=== PATIENT | female | born 1980 | race Hispanic/Latino ===

== ENCOUNTER 2019-10-25 01:11 | Inpatient (IN) | payer SELFPAY ==
--- OUTSIDE RECORDS SUMMARY | 2019-10-25 01:14 | XMS REPORT ---
:1980 [facility] Address [address] [place] [address] Care Team Providers Name Role Phone Unavailable Unavailable Unavailable Problems This patient has no known problems. Allergies, Adverse Reactions, Alerts This patient has no known allergies or adverse reactions. Medications This patient has no known medications.
[2019-10-25] MEDS ORDERED: BUTORPHANOL 1 MG/ML INJ ONE (03:09)
[2019-10-25] MEDS ORDERED: OXYTOCIN/LR 20 UNIT/1,000 ML BAG IV ONE (03:28)
[2019-10-25] MEDS ORDERED: LIDOCAINE 1% MPF 30 ML VIAL ONE (03:28)
[2019-10-25] MEDS ORDERED: METHYLERGONOVINE 0.2MG/ML AMP IM ONE (03:28)
[2019-10-25] MEDS ORDERED: METHYLERGONOVINE 0.2MG/ML AMP IM PRN ×2 (03:34→04:35)
[2019-10-25] MEDS ORDERED: CARBOPROST TROME 250 MCG/ML IM PRN ×2 (03:34→04:35)
[2019-10-25] MEDS ORDERED: PROMETHAZINE 25 MG/ML VIAL IV PRN (03:34)
[2019-10-25] MEDS ORDERED: Ringers Lactate 1,000 ML IV PRN (03:34)
[2019-10-25] MEDS ORDERED: BUTORPHANOL 1 MG/ML INJ IV ONE (03:37)
[2019-10-25 03:39] LABS: Absolute Lymphocytes (CBC) 2.7 K/uL (0.7-4.9); Basophils % 0.3 % (0-1.3); Hematocrit 28.2 % (36.0-45.0); MPV 9.4 fL (7.6-11.3); RBC Red Blood Cell Count 3.82 M/uL (3.86-4.86)
[2019-10-25] MEDS ORDERED: Ringers Lactate 1,000 ML IV SCH (04:00)
[2019-10-25] MEDS ORDERED: IBUPROFEN 200 MG TAB PO PRN (04:35)
[2019-10-25] MEDS ORDERED: METHYLERGONOVINE 0.2 MG TAB PO PRN (04:35)
[2019-10-25] MEDS ORDERED: ACETAMINOPHEN 500 MG TAB PO PRN (04:35)
[2019-10-25] MEDS ORDERED: ONDANSETRON 4 MG (ODT) TAB PO PRN (04:35)
--- NOTE | 2019-10-25 04:38 | P.BOP ---
Preoperative diagnosis: 40+wk , SROM, labor Postoperative diagnosis: same, delivery viable female Primary procedure: SCVD female Estimated blood loss: 150ml Findings: 7-8 oz female Complications: None Transferred to: Other (272) Condition: Good
[2019-10-25] MEDS ORDERED: OXYTOCIN/LR 20 UNITS/1,000 ML BAG IV SCH (05:00)
--- NOTE | 2019-10-25 09:48 | HP ---
Date of Admission: 10/25/2019 History Of Present Illness: Ms. Trejo is a 39-year-old female, 6, para 4- 0-1-4, now at approximately 40+ weeks' gestation. She was seen through [facility] for 1 visit. Had ultrasound that confirmed EDC of approximately 10/21. She otherwise has not received care because of lack of insurance. She presented yesterday with contractions, but cervix was closed. She comes in today with stronger contractions and had spontaneous rupture of membranes here with meconiu m-stained amniotic fluid apparent. She was noted to go from 1 cm to 3 cm during the observation. Past Medical History: 4 prior vaginal deliveries, 1 prior spontaneous AB at 14 weeks' gestation. Alexandria arias has no other significant hospitalizations, accidents, illnesses, injuries, or surgeries. Medications: She is on no medications on a regular basis other than vitamin. Social History: She does not smoke. Family History: Noncontributory. Review of Systems: She reports no recent cough, cold, fever, or chills. No recent nausea or vomiting. No breast knots or lumps. No bowel or bladder issues or urine difficulty. Infant has been active. Physical Examination: General: Reveals female, in moderate discomfort. Neck: Supple without adenopathy or thyromegaly. Lungs: Clear. Cardiac: Regular rate and rhythm without murmurs. Breasts: Not examined. Abdomen: Estimated weight of 8 pounds. Pelvic: Cervix now is approximately 6 to 7 cm, vertex presentation at -1 station with cervix 80% eff aced. Extremities: No cyanosis, clubbing, or edema. Impression: 40+ weeks' , limited to no care, active rapidly advancing labor. Plan: heart rate is relatively nonreactive. We will limit IV medications with her rapid progr ess. Doubt epidural will be available. JAZZ/VANDANAL Voice ID: [id number]
[2019-10-25] MEDS ORDERED: IBUPROFEN 600 MG TAB PO PRN (13:00)
[2019-10-25 19:26] VITALS: BMI 36.0
--- NOTE | 2019-10-25 20:54 | DN ---
Surgeon: Hemal Staley MD History: Ms. Trejo is a 39-year-old female, 6, para 4-0-1-4 at 40+ weeks gestatio n admitted with spontaneous rupture of membranes in an active labor. She had a first stage of labor of approximately 1 hour and 55 minutes, second stage of labor of 9 minutes. She delivered by spontan eous controlled vaginal delivery at 7 pounds 8 ounces female infant, 9 and 9, after having rece ived 1 mg of Stadol for analgesia during her labor course. Infant was delivered vertex OA. The cord was clamped, cut, and the placed on mother's upper abdomen. Cord blood was obtained. The pl acenta was spontaneously expelled and appeared to be intact. Intrauterine examination revealed no re tained placental fragments. She suffered no lacerations. Quantitative blood loss was 165 mL. JAZZ/YUN Voice ID: [id number] Report ID: [id number]
[2019-10-26 02:48] LABS: RPR (Rapid Plasma Reagin) NON-REACT (NON-REACT)
[2019-10-26] MEDS ORDERED: hydrOXYzine HCL 25 MG TAB PO ONE (05:10)
[2019-10-26 05:43] VITALS: BP 126/77
[2019-10-26 07:05] VITALS: TEMP 97.8
[2019-10-26] MEDS ORDERED: INFLUENZA VACCINE (for 3y+) 0.5 ML DOSE IMVAC ONE (07:32)
[2019-10-26] MEDS ORDERED: Tdap (Diph,Pertuss(Acell),Tet Vac) 0.5 ML SYR IMVAC ONE (07:32)
[2019-10-29 03:37] LABS: HBsAG Nonreactive (Nonreactive)
== END 2019-10-26 09:00 | disposition home or self-care (01) | DRG 807 ==
LOC: L&D 01:11 → 2ND-WC 02:32
PROVIDERS: ADMIT Specialist; ATTEND Specialist
PROC: 10E0XZZ Delivery of Products of Conception, External Approach (ICD-10-PCS; principal; 2019-10-25)
DX: O99.02 Anemia complicating childbirth (principal); Z37.0 Single live birth; D50.9 Iron deficiency anemia, unspecified; Z3A.40 40 weeks gestation of pregnancy; Z23 Encounter for immunization
CPT/HCPCS: 36415; 85014; 85025; 86592; 86901; 87340; 90471; 90715; J0595; J2210; J2590; Q2035